=== PATIENT | female | born 1975 | race Caucasian/White ===

== ENCOUNTER 2020-03-26 05:16 | Day surgery (SDC) | payer OTHER ==
[2020-03-21 16:11] VITALS: BMI 40.8
[2020-03-26] MEDS ORDERED: HYDROmorphone *PCA* 10MG/50ML DISP.SYRIN ONE (14:45)
[2020-03-26] MEDS ORDERED: HYDROmorphone *PCA* 10MG/50ML DISP.SYRIN PCA ONE (14:54)
[2020-03-26] MEDS ORDERED: SODIUM CHLORIDE 1,000 ML IV SCH (15:30)
[2020-03-26] MEDS ORDERED: ACETAMINOPHEN 1000 MG/100 ML VIAL (NON FORMULARY) IVPB PRN (17:43)
[2020-03-26] MEDS ORDERED: MORPHINE SULFATE 2 MG/ML VIAL IVPUSH PRN ×3 (17:43→19:44)
[2020-03-26 20:40] LABS: POTASSIUM 4.2 mmol/L (3.5-5.1)
[2020-03-26 20:42] LABS: ALBUMIN 3.2 g/dl (3.4-5.0); CALCIUM 8.7 mg/dL (8.5-10.1)
[2020-03-26 20:46] LABS: CREATININE 0.5 mg/dL (0.55-1.3)
[2020-03-26 20:47] LABS: BILIRUBIN,TOTAL 0.6 mg/dL (0.2-1); INR 1.03 (0.83-1.09); PROTHROMBIN TIME (PATIENT) 12.4 SEC (9.7-13.0); TOT PROT 7.1 g/dl (6.4-8.2)
[2020-03-26 20:49] LABS: BASO % 0.3 % (0-2.0); EOS % 0.1 % (0-4.5); HEMATOCRIT 37.4 % (32.4-45.2); HEMOGLOBIN 11.6 GM/dL (10.7-15.3); LYMPH % 14.2 % (8-40); MCH 25.9 pg (25.7-33.7); MCHC 31.1 g/dl (32.0-36.0); MEAN CELL VOLUME 83.3 fl (80-96); MEAN PLT VOLUME 8.8 fl (7.5-11.1); NEUT % 81.4 % (42.8-82.8); PLATELET COUNT 328 K/MM3 (134-434); RBC 4.49 M/mm3 (3.60-5.2); RDW 16.5 % (11.6-15.6)
[2020-03-26] MEDS: ACETAMINOPHEN 1000 MG/100 ML VIAL (NON FORMULARY) IVPB PRN (21:38)
[2020-03-26] MEDS ORDERED: LISINOPRIL 5 MG TABLET PO SCH (22:00)
[2020-03-27] MEDS: ACETAMINOPHEN 1000 MG/100 ML VIAL (NON FORMULARY) IVPB PRN ×2 (06:41→14:07)
[2020-03-27 08:11] LABS: HEMATOCRIT 35.7 % (32.4-45.2); HEMOGLOBIN 11.3 GM/dL (10.7-15.3); MCH 26.3 pg (25.7-33.7); MCHC 31.7 g/dl (32.0-36.0); MEAN CELL VOLUME 82.8 fl (80-96); MEAN PLT VOLUME 8.7 fl (7.5-11.1); PLATELET COUNT 308 K/MM3 (134-434); RBC 4.31 M/mm3 (3.60-5.2); RDW 16.3 % (11.6-15.6); WHITE BLOOD COUNT 12.6 K/mm3 (4.0-10.0)
[2020-03-27 08:25] LABS: POTASSIUM 4.4 mmol/L (3.5-5.1)
[2020-03-27 08:29] LABS: CALCIUM 8.8 mg/dL (8.5-10.1)
[2020-03-27 08:30] LABS: ALBUMIN 3.2 g/dl (3.4-5.0); BLOOD UREA NITROGEN 10.3 mg/dL (7-18); MAGNESIUM 1.9 mg/dL (1.8-2.4)
[2020-03-27 08:33] LABS: CREATININE 0.6 mg/dL (0.55-1.3); PHOSPHOROUS 3.4 mg/dL (2.5-4.9)
[2020-03-27 13:37] VITALS: BP 116/71; PULSE 99; TEMP 98.9
== END 2020-03-27 15:54 | disposition home or self-care (01) ==
LOC: JASUSAT 05:16 → SUATTDRO 05:16 → J6S 18:55 → JASUSAT 03-27 15:54
PROC: 04LE3DT Occlusion of Right Uterine Artery with Intraluminal Device, Percutaneous Approach (ICD-10-PCS; 2020-03-26)
PROC: 04LF3DU Occlusion of Left Uterine Artery with Intraluminal Device, Percutaneous Approach (ICD-10-PCS; principal; 2020-03-26 10:00)
DX: D25.9 Leiomyoma of uterus, unspecified (principal)
CPT/HCPCS: 36415; 37243; 76000-TC-FY; 76937-TC; 80053; 83735; 84100; 85025; 85027; 85610; 94760; C1760; C1769; C1887; C1894; J0131

== ENCOUNTER 2020-04-13 14:15 | Emergency (ER) | payer OTHER ==
[2020-04-13 14:26] VITALS: BP 125/80; PULSE 113; BMI 40.8
[2020-04-13 14:38] VITALS: TEMP 98.1
[2020-04-13 15:14] LABS: BASO % 0.3 % (0-2.0); EOS % 0.5 % (0-4.5); HEMATOCRIT 32.5 % (32.4-45.2); HEMOGLOBIN 10.5 GM/dL (10.7-15.3); LYMPH % 16.3 % (8-40); MCH 26.6 pg (25.7-33.7); MCHC 32.4 g/dl (32.0-36.0); MEAN CELL VOLUME 82.1 fl (80-96); MEAN PLT VOLUME 8.4 fl (7.5-11.1); MONO % 5.2 % (3.8-10.2); NEUT % 77.7 % (42.8-82.8); PLATELET COUNT 701 K/MM3 (134-434); RBC 3.96 M/mm3 (3.60-5.2); RDW 15.4 % (11.6-15.6); WHITE BLOOD COUNT 18.2 K/mm3 (4.0-10.0)
[2020-04-13 15:24] LABS: HCG,QUALITATIVE URINE Negative
[2020-04-13 15:31] LABS: POTASSIUM 4.8 mmol/L (3.5-5.1)
[2020-04-13 15:33] LABS: CALCIUM 9.5 mg/dL (8.5-10.1)
[2020-04-13 15:34] LABS: ALBUMIN 3.1 g/dl (3.4-5.0)
[2020-04-13 15:35] LABS: EPI CELLS >36 /uL (0-25.1); HYALINE CASTS 4 /uL (0-3.1); URINE APPEARANCE CLOUDY; URINE BACTERIA 1446 /uL (0-1359); URINE BILIRUBIN NEGATIVE (NEGATIVE); URINE COLOR YELLOW; URINE GLUCOSE (UA) NEGATIVE (NEGATIVE); URINE KETONE NEGATIVE (NEGATIVE); URINE LEUK ESTERASE 1+ (NEGATIVE); URINE NITRITE NEGATIVE (NEGATIVE); URINE PROTEIN 1+ (NEGATIVE); URINE WBC 148 /uL (0-25.8)
[2020-04-13 15:36] LABS: URINE RBC 210.4 /uL (0-23.9)
[2020-04-13 15:37] LABS: CREATININE 0.6 mg/dL (0.55-1.3)
[2020-04-13 15:38] LABS: BILIRUBIN,TOTAL 0.4 mg/dL (0.2-1)
[2020-04-13 15:39] LABS: TOT PROT 8.1 g/dl (6.4-8.2)
[2020-04-13] MEDS ORDERED: SULFAMETHOXAZOLE/TRIMETHOPRIM 800MG/160MG D.S. TABLET PO ONE (15:54)
[2020-04-13] MEDS ORDERED: SULFAMETHOXAZOLE/TRIMETHOPRIM 800MG/160MG D.S. TABLET ONE (16:59)
== END 2020-04-13 17:04 | disposition home or self-care (01) ==
LOC: JER 14:15
DX: N30.00 Acute cystitis without hematuria (principal)
CPT/HCPCS: 36415; 80053; 81003; 84703; 85025; 87086; 99284-25